=== PATIENT | female | born 1950 | race Caucasian/White ===

== ENCOUNTER → 2017-09-01 | Outpatient (CLI) | payer BC ==
[~2017-09-01] MED LIST: ATV/1 PO; MELA1CHW PO
--- NOTE | 2017-09-01 15:16 | DIAGNOSTIC IMAGING REPORT ---
CHEST 2 VIEWS ROUTINE CLINICAL HISTORY: Preoperative evaluation. COMPARISON STUDY: No previous studies for comparison. FINDINGS: Note is made of a 1.1 cm nodular density within the lateral right midlung. No pneumothorax or pleural effusion is present. There is no evidence of pulmonary edema. Linear left lower lung opacity is suggestive of atelectasis. Cardiomediastinal silhouette is normal. Lateral view demonstrates suspected oral contrast within portions of the colon. IMPRESSION: 1. No acute cardiopulmonary findings. 2. 1.1 cm nodular density within the lateral right midlung. This is nonspecific and may be pleural in etiology. A follow-up chest CT is recommended to exclude a pulmonary nodule. Electronically signed by: Kendrick Hogue M.D. 09/01/2017 3:15 PM Dictated Date/Time: 09/01/2017 3:13 PM
[2017-09-01 15:31] LABS: BASO % 0.6 %; BASO ABS # 0.05 K/uL (0-0.2); COMPLETE YES; EOS % 0.8 %; HEMATOCRIT 41.1 % (37-47); IG% 0.4 %; LYMPH ABS # 1.93 K/uL (1.2-3.4); MEAN CELL VOLUME 88.6 fL (80-100); MEAN CORPUSCULAR HEMOGLOBIN 30.2 pg (25-34); MEAN CORPUSCULAR HGB CONC 34.1 g/dl (32-36); MEAN PLATELET VOLUME 8.9 fL (7.4-10.4); MONO % 8.8 %; NEUT % 64.4 %; PLATELET COUNT 296 K/uL (130-400); RED BLOOD COUNT 4.64 M/uL (4.2-5.4); WHITE BLOOD COUNT 7.73 K/uL (4.8-10.8)
[2017-09-01 15:51] LABS: BLOOD UREA NITROGEN 10 mg/dl (7-18); BUN/CREATININE RATIO 17.3 (10-20); CALCIUM 8.9 mg/dl (8.5-10.1); CARBON DIOXIDE 27 mmol/L (21-32); CHLORIDE 108 mmol/L (98-107); GLUCOSE 88 mg/dl (70-99); POTASSIUM 3.6 mmol/L (3.5-5.1); SODIUM 141 mmol/L (136-145)
== END | disposition home or self-care (01) ==
LOC: C.CPL 14:39
PROVIDERS: ATTEND Urology
DX: N20.2 Calculus of kidney with calculus of ureter (principal); R91.8 Other nonspecific abnormal finding of lung field

== ENCOUNTER → 2017-09-08 | Day surgery (SDC) | payer BC ==
[2017-09-05 12:07] VITALS: Ht 166.4 cm; Wt 78.2 kg
[~2017-09-08] VITALS: Ht 166.4 cm; Wt 78.2 kg
[~2017-09-08] MED LIST changes: +ACET-1175 PO; +ATROPINE SULFATE 0.1 MG/ML 5ML SYR IV PRN; +CIPR-255 PO; +CIPROFLOXACIN 400MG / D5W IV SCH; +DEXAMETHASONE SOD INJ 4 MG/ML VIAL IV PRN; +DEXAMETHASONE SOD INJ 4 MG/ML VIAL ONE; +EpHEDrine SULFATE INJ 50 MG/ML AMP IV PRN; +FENTANYL CITRATE INJ 50 MCG/1 ML 2 ML VIAL IV PRN; +FENTANYL CITRATE INJ 50 MCG/1 ML 2 ML VIAL ONE; +KETOROLAC TROMETHAMINE 15 MG/ML VIAL IV. PRN; +LABETALOL HCL IV 5 MG/ML 20ML IV PRN; +LACTATED RINGER'S 1000ML 1,000 ML IV SCH; +LIDOCAINE HCL 2% 2 ML VIAL (20MG/ML) ONE; +METOCLOPRAMIDE HCL INJ 5 MG/ML 2 ML VIAL IV PRN; +MIDAZOLAM HCL 1 MG/ML 2ML VIAL ONE; +MoRPHine SULFATE 10 MG/ML CARP/VIAL IV PRN; +ONDANSETRON INJ 2 MG/ML 2 ML VIAL IV PRN; +ONDANSETRON INJ 2 MG/ML 2 ML VIAL ONE; +OXYC7.5T65 PO; +OXYCODONE/ACETAMINOPHEN 5-325 TAB PO PRN; +PHEN-775 PO; +PHENYLEPHRINE 100MCG/ML 5ML SYR IV PRN; +PROPOFOL IV EMULSION 10 MG/ML 20 ML VIAL IV ONE
--- NOTE | 2017-09-08 10:15 | History & Physical Bridge - [place] ---
H&P Re-Evaluation Bridge Note: I have examined the patient, reviewed the History & Physical and in the interval since the performance of the History & Physical I have noted the following changes of clinical significance: Left Ureteral Stone No changes noted
--- NOTE | 2017-09-08 11:12 | Discharge Instructions ---
Discharge Instructions Date of Service Sep 08, 2017. Admission Reason for Admission: STONE Discharge Discharge Diagnosis / Problem: Stone Discharge Goals Goal(s): Decrease discomfort, Improve function Activity Recommendations Activity Limitations: resume your previous activity Lifting Limitations: none Exercise/Sports Limitations: none Shower/Bathe: no limitations . Instructions / Follow-Up Instructions / Follow-Up May have pelvic pain or discomfort. May have blood in urine. May have bruising. Call if any fevers. Current Hospital Diet Hospital Diet(s): Regular Diet Discharge Diet Recommended Diet: Regular Diet Procedures Procedures Performed: L ESWL Pending Studies Studies pending at discharge: no Medical Emergencies . Who to Call and When: Medical Emergencies: If at any time you feel your situation is an emergency, please call 911 immediately. . Non-Emergent Contact Non-Emergency issues call your: Primary Care Provider, Urologist Call Non-Emergent contact if: you have a fever, temperature is above 101, temperature is above 101.5, your pain is not controlled, your pain is worsening . . "Provider Documentation" section prepared by Kelvin Ross,. . VTE Core Measure Inpt VTE Proph given/why not?: SCD's
--- NOTE | 2017-09-08 11:25 | [facility] Operative Report ---
Operative Report Operative Date Sep 08, 2017. Pre-Operative Diagnosis Left Stone Post-Operative Diagnosis Same Procedure(s) Performed L ESWL Surgeon [place] [employer] Specialist Surgeon(s) None Estimated Blood Loss None Findings Left ureteral stone. Fluids (cc crystalloids) See Anes Report Specimens None Drains None Anesthesia General Complication(s) None Disposition Recovery Room / PACU Indications Left ureteral stone with discomfort. Risks and benefits discussed at length. Patient consented and ready to proceed. Description of Procedure Patient was consented and brought back to the operating room. Patient was placed under anesthesia in the supine position. Patient was prepped and draped in the regular sterile fashion. A time out was completed. With the time out completed, The patient was assessed with fluoroscopy. The stone was identified and position was triangulated. At this point, the shock waves commenced. The stone was monitored throughout the process with fluoroscopy to assess progression and maintain position. The stone was pulverized with 3000 shocks to the large right stone at a maximum voltage of 5 with a total fluoroscopic time of 2.5 mins With the stone treated, the procedure ended. The patient was cleaned, aroused from anesthesia, and transferred to the pacu in stable condition having tolerated the procedure well with no complications. I was present and participated in all aspects of the procedure. The patient will be monitored in the PACU until transferred. I attest to the content of the Intraoperative Record and any orders documented therein. Any exceptions are noted below.
[2017-09-08 12:28] VITALS: TEMP 37
--- NOTE | 2017-09-08 12:45 | Anesthesia Progress Nt - [facility] ---
Anesthesia Post Op Note Date & Time Sep 08, 2017 at 12:44 Vital Signs Pain Intensity: 0 Vital Signs Past 12 Hours Date Time Temp Pulse Resp B/P (MAP) Pulse Ox O2 Delivery O2 Flow Rate FiO2 09/08/17 12:28 37 67 16 150/86 (107) 98 Room Air 09/08/17 12:20 153/87 09/08/17 12:18 36.4 79 12 153/87 98 Room Air 09/08/17 12:18 82 13 09/08/17 12:18 81 13 99 09/08/17 12:15 146/86 09/08/17 12:13 79 13 09/08/17 12:13 80 13 97 09/08/17 12:10 146/86 09/08/17 12:08 80 22 99 09/08/17 12:08 80 22 09/08/17 12:05 139/86 09/08/17 12:03 78 2 100 09/08/17 12:03 79 2 09/08/17 12:00 147/88 09/08/17 11:58 80 5 100 09/08/17 11:58 79 5 09/08/17 11:55 136/79 09/08/17 11:53 78 3 100 09/08/17 11:53 78 3 09/08/17 11:50 140/88 09/08/17 11:49 140/86 09/08/17 11:48 36.2 82 16 140/86 99 Mask 6 09/08/17 09:36 36.4 93 18 148/90 (109) 98 Room Air Notes Mental Status: alert / awake / arousable, participated in evaluation Pt Amnestic to Procedure: Yes Nausea / Vomiting: adequately controlled Pain: adequately controlled Airway Patency, RR, SpO2: stable & adequate BP & HR: stable & adequate Hydration State: stable & adequate Anesthetic Complications: no major complications apparent
[2017-09-08 12:55] VITALS: BP 162/90; PULSE 73; O2SAT 97
== END | disposition home or self-care (01) ==
LOC: X.SURG 09:21
PROVIDERS: ATTEND Urology
DX: N20.1 Calculus of ureter (principal); N20.0 Calculus of kidney; Z87.891 Personal history of nicotine dependence; Z68.28 Body mass index [BMI] 28.0-28.9, adult; Z80.0 Family history of malignant neoplasm of digestive organs

== ENCOUNTER → 2017-09-08 | Outpatient (CLI) | payer BC ==
[~2017-09-08] MED LIST changes: -ATROPINE SULFATE 0.1 MG/ML 5ML SYR IV PRN; -CIPROFLOXACIN 400MG / D5W IV SCH; -DEXAMETHASONE SOD INJ 4 MG/ML VIAL IV PRN; -DEXAMETHASONE SOD INJ 4 MG/ML VIAL ONE; -EpHEDrine SULFATE INJ 50 MG/ML AMP IV PRN; -FENTANYL CITRATE INJ 50 MCG/1 ML 2 ML VIAL IV PRN; -FENTANYL CITRATE INJ 50 MCG/1 ML 2 ML VIAL ONE; -KETOROLAC TROMETHAMINE 15 MG/ML VIAL IV. PRN; -LABETALOL HCL IV 5 MG/ML 20ML IV PRN; -LACTATED RINGER'S 1000ML 1,000 ML IV SCH; -LIDOCAINE HCL 2% 2 ML VIAL (20MG/ML) ONE; -METOCLOPRAMIDE HCL INJ 5 MG/ML 2 ML VIAL IV PRN; -MIDAZOLAM HCL 1 MG/ML 2ML VIAL ONE; -MoRPHine SULFATE 10 MG/ML CARP/VIAL IV PRN; -ONDANSETRON INJ 2 MG/ML 2 ML VIAL IV PRN; -ONDANSETRON INJ 2 MG/ML 2 ML VIAL ONE; -OXYCODONE/ACETAMINOPHEN 5-325 TAB PO PRN; -PHENYLEPHRINE 100MCG/ML 5ML SYR IV PRN; -PROPOFOL IV EMULSION 10 MG/ML 20 ML VIAL IV ONE
--- NOTE | 2017-09-08 09:30 | DIAGNOSTIC IMAGING REPORT ---
KUB HISTORY: Follow-up study N20.0 [id number] COMPARISON: CT 08/30/2017. FINDINGS: The bowel gas pattern is non-obstructive. There is no organomegaly. Bilateral nephrolithiasis without definite ureteral calculi. The left kidney is partially obscured by bowel gas. Phleboliths of the pelvis. No pneumoperitoneum or pneumatosis. No fracture. Mild dextroscoliosis with multilevel intervertebral disc space narrowing and spondylitic changes. Moderate osteoarthritis of the hips. IMPRESSION: Bilateral nephrolithiasis without ureteral calculi. Left kidney is partially obscured by bowel gas. Electronically signed by: Adelso Leger M.D. 09/08/2017 9:28 AM Dictated Date/Time: 09/08/2017 9:25 AM
== END | disposition home or self-care (01) ==
LOC: C.RAD1850 08:49
PROVIDERS: ATTEND Urology
DX: N20.0 Calculus of kidney (principal)

== ENCOUNTER → 2017-10-04 | Outpatient (CLI) | payer BC ==
[~2017-10-04] MED LIST changes: -ACET-1175 PO; +ACET-1256 PO
--- NOTE | 2017-10-04 10:23 | DIAGNOSTIC IMAGING REPORT ---
KUB HISTORY: N20.0 [id number] COMPARISON: IVP 09/21/2017. FINDINGS: The bowel gas pattern is unremarkable. There are no dilated loops of small bowel to suggest an obstruction. There again noted a few punctate bilateral renal calculi, unchanged. There is a left ureteral stent which appears to be in good position. No ureteral calculi identified. Specifically, the distal left ureteral stone is no longer identified. Round calcification within the right deep pelvis remains stable and likely represents a phlebolith. No pneumoperitoneum or pneumatosis. IMPRESSION: 1. Stable bilateral nephrolithiasis. 2. Interval placement of a left ureteral stent which appears to be in good position. 3. No ureteral calculi. Electronically signed by: David Felix M.D. 10/04/2017 10:21 AM Dictated Date/Time: 10/04/2017 10:19 AM
== END | disposition home or self-care (01) ==
LOC: C.RAD 09:57
PROVIDERS: ATTEND Urology
DX: N20.0 Calculus of kidney (principal)

== ENCOUNTER → 2017-11-29 | Outpatient (CLI) | payer BC ==
[~2017-11-29] MED LIST changes: -PHEN-775 PO
--- NOTE | 2017-11-29 14:31 | DIAGNOSTIC IMAGING REPORT ---
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 Examination is acquired following the administration of 50 cc nonionic contrast. There is prompt opacification of the upper collecting systems bilaterally. Tomographic sections are negative for mass or hydronephrosis. Ureters normal in course and caliber. Bladder fills well. There is no significant post void residual. IMPRESSION: 1. Bilateral punctate nephrocalcinosis. 2. No evidence for an obstructing urinary tract calculus. The above report was generated using voice recognition software. It may contain grammatical, syntax or spelling errors. Electronically signed by: Oliver Ronquillo M.D. 11/29/2017 2:23 PM Dictated Date/Time: 11/29/2017 2:22 PM
== END | disposition home or self-care (01) ==
LOC: C.RAD 12:19
PROVIDERS: ATTEND Urology
DX: E83.59 Other disorders of calcium metabolism (principal); N29 Other disorders of kidney and ureter in diseases classified elsewhere